=== PATIENT | male | born 1970 | race Caucasian/White ===

== ENCOUNTER 2016-10-01 02:15 | Emergency (ER) | payer OTHER ==
[2016-10-01] MEDS ORDERED: ZIPRASIDONE MESYLATE 20 MG VIAL IM ONE ×2 (02:20)
[2016-10-01] MEDS ORDERED: MIDAZOLAM 2 MG/2 ML VIAL ONE (02:26)
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
[2016-10-01] MEDS ORDERED: MIDAZOLAM 10 MG/2 ML VIAL IM ONE (02:48)
[2016-10-01 02:49] LABS: % IMMATURE GRANULYOCYTES 0.7 % (0.0-1.1); ABSOLUTE IMMATURE GRANULOCYTES 0.15 10^3/uL (0.00-0.10); ADD DIFF? NO; ADD MORPH? NO; ADD SCAN? NO; ATYPICAL LYMPHOCYTE FLAG 0 (0-99); FRAGMENT RBC FLAG 0 (0-99); HEMATOCRIT 43.3 % (40.0-51.0); LEFT SHIFT FLG 0 (0-99); LIPEMIA HEMOLYSIS FLAG 90 (0-99); MEAN CELL HEMOGLOBIN 30.7 pg (27.9-34.1); MEAN CELL HEMOGLOBIN CONCENTR. 34.6 g/dL (32.4-36.7); MEAN CELL VOLUME 88.7 fL (81.5-99.8); PLATELET CLUMPS FLAG 10 (0-99); PLATELET COUNT 414 10^3/uL (150-400); RED BLOOD CELL COUNT 4.88 10^6/uL (4.40-6.38); RED CELL DISTRIBUTION WIDTH 12.5 % (11.5-15.2)
[2016-10-01] MEDS ORDERED: NS 1,000 ML IV ONE ×2 (02:49→03:41)
[2016-10-01 03:01] LABS: ALANINE AMINOTRANSFERASE 38 IU/L (21-72); ALBUMIN 5.1 g/dL (3.5-5.0); ALKALINE PHOSPHATASE 85 IU/L (38-126); ANION GAP 22 mEq/L (8-16); BILIRUBIN,TOTAL 1.2 mg/dL (0.1-1.4); CALCIUM 9.6 mg/dL (8.5-10.4); CARBON DIOXIDE 13 mEq/l (22-31); CHLORIDE 97 mEq/L (97-110); CREATININE 0.9 mg/dL (0.7-1.3); ETHANOL SERUM < 10 mg/dL (0-10); GLOMERULAR FILTRATION RATE > 60; GLUCOSE 114 mg/dL (70-100); POTASSIUM 4.3 mEq/L (3.5-5.2); SODIUM 132 mEq/L (134-144); TOTAL PROTEIN 7.8 g/dL (6.3-8.2)
[2016-10-01 03:06] LABS: LITHIUM < 0.2 mEq/L (0.6-1.2)
[2016-10-01 03:07] LABS: ASPARTATE AMINOTRANSFERASE 77 IU/L (17-59)
[2016-10-01 04:31] LABS: COLOR YELLOW; LEUKOCYTE ESTERASE,URINE NEGATIVE (NEGATIVE); NITRITE,URINE NEGATIVE (NEGATIVE)
[2016-10-01 05:58] LABS: % IMMATURE GRANULYOCYTES 0.5 % (0.0-1.1); ABSOLUTE IMMATURE GRANULOCYTES 0.11 10^3/uL (0.00-0.10); ADD DIFF? NO; ADD MORPH? NO; ADD SCAN? NO; ATYPICAL LYMPHOCYTE FLAG 10 (0-99); FRAGMENT RBC FLAG 0 (0-99); HEMATOCRIT 38.3 % (40.0-51.0); HEMOGLOBIN 13.6 g/dL (13.7-17.5); LEFT SHIFT FLG 10 (0-99); LIPEMIA HEMOLYSIS FLAG 90 (0-99); MEAN CELL HEMOGLOBIN 31.2 pg (27.9-34.1); MEAN CELL HEMOGLOBIN CONCENTR. 35.5 g/dL (32.4-36.7); MEAN CELL VOLUME 87.8 fL (81.5-99.8); PLATELET CLUMPS FLAG 10 (0-99); PLATELET COUNT 335 10^3/uL (150-400); RED BLOOD CELL COUNT 4.36 10^6/uL (4.40-6.38); RED CELL DISTRIBUTION WIDTH 12.5 % (11.5-15.2)
[2016-10-01 06:13] LABS: ANION GAP 7 mEq/L (8-16); CALCIUM 8.6 mg/dL (8.5-10.4); CARBON DIOXIDE 23 mEq/l (22-31); CHLORIDE 107 mEq/L (97-110); CREATININE 0.7 mg/dL (0.7-1.3); GLOMERULAR FILTRATION RATE > 60; GLUCOSE 97 mg/dL (70-100); POTASSIUM 4.1 mEq/L (3.5-5.2); SODIUM 137 mEq/L (134-144)
[2016-10-01 06:44] VITALS: TEMP 98.2
[2016-10-01 07:30] VITALS: PULSE 88
[2016-10-01 11:46] VITALS: BP 161/103; RESP 18; O2SAT 95
== END 2016-10-01 11:47 | disposition home or self-care (01) ==
LOC: EDUNIT#
DX: F31.9 Bipolar disorder, unspecified (principal); F17.200 Nicotine dependence, unspecified, uncomplicated
CPT/HCPCS: 80305; G0480; J2250; J3486

== ENCOUNTER 2016-10-05 10:54 | Inpatient (IN) | payer OTHER ==
[2016-10-05] MEDS ORDERED: LORazepam 1 MG TAB PO ONE (11:29)
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
[2016-10-05 12:53] LABS: % IMMATURE GRANULYOCYTES 0.6 % (0.0-1.1); ABSOLUTE IMMATURE GRANULOCYTES 0.15 10^3/uL (0.00-0.10); ADD DIFF? NO; ADD MORPH? NO; ADD SCAN? NO; ATYPICAL LYMPHOCYTE FLAG 10 (0-99); FRAGMENT RBC FLAG 0 (0-99); HEMATOCRIT 45.3 % (40.0-51.0); LEFT SHIFT FLG 0 (0-99); LIPEMIA HEMOLYSIS FLAG 90 (0-99); MEAN CELL HEMOGLOBIN 31.1 pg (27.9-34.1); MEAN CELL HEMOGLOBIN CONCENTR. 35.3 g/dL (32.4-36.7); MEAN PLATELET VOLUME 8.9 fL (8.7-11.7); PLATELET CLUMPS FLAG 0 (0-99); PLATELET COUNT 430 10^3/uL (150-400); RED BLOOD CELL COUNT 5.15 10^6/uL (4.40-6.38); RED CELL DISTRIBUTION WIDTH 12.4 % (11.5-15.2)
[2016-10-05 13:10] LABS: ANION GAP 13 mEq/L (8-16); CALCIUM 9.7 mg/dL (8.5-10.4); CARBON DIOXIDE 20 mEq/l (22-31); CHLORIDE 99 mEq/L (97-110); CREATININE 0.6 mg/dL (0.7-1.3); ETHANOL SERUM < 10 mg/dL (0-10); GLOMERULAR FILTRATION RATE > 60; GLUCOSE 114 mg/dL (70-100); SALICYLATE < 1.0 mg/dL (2.0-20.0); SODIUM 132 mEq/L (134-144)
[2016-10-05 14:03] LABS: COLOR YELLOW; LEUKOCYTE ESTERASE,URINE NEGATIVE (NEGATIVE); NITRITE,URINE NEGATIVE (NEGATIVE)
[2016-10-05 14:09] LABS: MUCUS 4+ /lpf (NONE-1+)
[2016-10-05 14:37] LABS: LITHIUM < 0.2 mEq/L (0.6-1.2)
[2016-10-05] MEDS ORDERED: NICOTINE POLACRILEX 2 MG GUM B ONE (18:40)
[2016-10-05] MEDS ORDERED: MAG HYDROX/AL HYDROX/SIMETH 30 ML UDCUP PO PRN (20:11)
[2016-10-05] MEDS ORDERED: OLANZapine DISINTEGR 10 MG TAB PO PRN (20:11)
[2016-10-05] MEDS: LITHIUM CARBONATE 300 MG TAB PO SCH (20:42)
[2016-10-05] MEDS: QUEtiapine FUMARATE 300 MG TAB PO SCH (20:55)
[2016-10-05] MEDS: NICOTINE POLACRILEX 2 MG GUM B PRN (22:29)
[2016-10-06] MEDS: LITHIUM CARBONATE 300 MG TAB PO SCH ×3 (09:43→21:30)
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
[2016-10-06] MEDS: NICOTINE 21 MG/24 HR PATCH TD SCH (14:55)
[2016-10-06] MEDS: NICOTINE POLACRILEX 2 MG GUM B PRN (21:10)
[2016-10-06] MEDS: QUEtiapine FUMARATE 300 MG TAB PO SCH (21:30)
[2016-10-06] MEDS ORDERED: OLANZapine DISINTEGR 5 MG TAB PO PRN (23:42)
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
[2016-10-07] MEDS: NICOTINE POLACRILEX 2 MG GUM B PRN ×2 (04:22→18:49)
[2016-10-07] MEDS: LITHIUM CARBONATE 300 MG TAB PO SCH ×2 (07:51→21:24)
[2016-10-07] MEDS: NICOTINE 21 MG/24 HR PATCH TD SCH (07:52)
--- NOTE | 2016-10-07 12:38 | SOAPPROG ---
SOAP Progress Note Assessment/Plan: Assessment: 46yo CM admitted on M1 for psychosis after 2nd presentation to [facility] ED within 1 week. Has hx of BMD with psychosis, also THC use and more remote EtOH/meth use. Became psychotic/paranoid at [facility] on 10/01/16 with seizure-like activity, medicated with IM Geodon. Cleared and d/cd. Re-presented with increased psychosis and dangerous behaviors 10/05/16 and admitted to 3N. Has been noncompliant with psych treatment and recommended medical w/u incl labs and VS for his elevated WBC 23K, which was also noted 10/01. 10/07/16 10:30 Did not sleep at all last pm. This AM had acute episode of N/V, stated he did not feel right, did not feel well. +lightheaded, blurry vision. no cervical pain or headache. +mid-sternal/left-sided chest pain with some radiation to LUE and reports mildly feeling SOB. Adds that he has had "a little cough". Reports +FHx of CAD. Feels anxious around people, and admits feeling so now, but compliant with plan to transfer to ED for evaluation. Did allow VS this AM following expression of medical concerns. Did not allow labs this AM on 3N. PLAN: Discussed case with ED attending Dr. Link, will discharge pt to ED for evaluation. Continue on M1 hold. [facility] notified. Objective: Vital Signs Temp Pulse Resp BP Pulse Ox 36.8 C 87 12 169/96 H 97 10/07/16 10:25 10/07/16 10:25 10/07/16 10:25 10/07/16 10:25 10/07/16 10:25 - Time Spent With Patient Time Spent With Patient: 35min - Pending Discharge Pending Discharge Within 24 Hours: No Pending Discharge Within 48 Hours: No ICD10 Worksheet Patient Problems: Problems Problem Status Onset Acute psychosis Acute Leukocytosis Acute Thrombocythemia Acute
[2016-10-07] MEDS: NEOMYCIN/POLYMYX B/HC SUSP 10 ML OTIC.BTL LEFTEAR SCH ×2 (17:33→20:25)
[2016-10-07] MEDS: QUEtiapine FUMARATE 300 MG TAB PO SCH ×2 (21:24→21:52)
[2016-10-08] MEDS: NEOMYCIN/POLYMYX B/HC SUSP 10 ML OTIC.BTL LEFTEAR SCH ×5 (06:20→21:32)
[2016-10-08] MEDS: AZITHROMYCIN 250 MG TAB PO SCH ×2 (08:34→13:44)
[2016-10-08] MEDS: LORazepam 0.5 MG TAB PO PRN (08:42)
[2016-10-08] MEDS: NICOTINE 21 MG/24 HR PATCH TD SCH (09:16)
[2016-10-08] MEDS: LITHIUM CARBONATE 300 MG TAB PO SCH ×2 (09:17→21:32)
--- NOTE | 2016-10-08 10:05 | SOAPPROG ---
SOAP Progress Note Assessment/Plan: Assessment: 46yo CM admitted on M1 for psychosis after 2nd presentation to [facility] ED within 1 week. Has hx of BMD with psychosis, also THC use and more remote EtOH/meth use. Became psychotic/paranoid at [facility] on 10/01/16 with seizure-like activity, medicated with IM Geodon. Cleared and d/cd. Re-presented with increased psychosis and dangerous behaviors 10/05/16 and admitted to 3N. Has been noncompliant with psych treatment and recommended medical w/u incl labs and VS for his elevated WBC 23K, which was also noted 10/01. 10/07/16 10:30 Did not sleep at all last pm. This AM had acute episode of N/V, stated he did not feel right, did not feel well. +lightheaded, blurry vision. no cervical pain or headache. +mid-sternal/left-sided chest pain with some radiation to LUE and reports mildly feeling SOB. Adds that he has had "a little cough". Reports +FHx of CAD. Feels anxious around people, and admits feeling so now, but compliant with plan to transfer to ED for evaluation. Did allow VS this AM following expression of medical concerns. Did not allow labs this AM on 3N. PLAN: Discussed case with ED attending Dr. Link, will discharge pt to ED for evaluation. Continue on M1 hold. TLC notified. 10/07/16 15:46 pt returned from ED after about 4-5 hrs, t/w Dr. Link. negative w/u for any acute medical issues except bronchitis noted on CXray and started on ABXs. no acute EKG changes, neg troponins, WBC 9K. Pt returned to unit, still not feeling he needs to be on inpatient psychiatry unit, [facility]. Expressed paranoid ideation about his lab work, insisting "no way my white count can just drop like that", and then talked of conspiracies within the hospital despite attempt to explain that w/u was neg and nml WBC is good. "I still don't feel good, I don't need to be here". Unable to elaborate further. MSE: disheveled, casually dressed, good eye contact, nml psychom activity, nml rate/vol speech but with hostile tone, mood "I'm fine", affect irritable/angry, denied any SI or HI, and denied any AH/VH "but I wouldn't tell you anyway, I think we're done talking". i/j -poor. A&Ox3. Explained that M1 would in AM and he was not felt to be stable for d/c, certainly not to travel back to [place] unmedicated and risk worsening psychosis. Mentioned that dtr also concerned about pt. He then cursed and said he didn't care about her, although she has been a primary support for him and he has been supportive of her. Pt's dtr reported earlier that pt prob wouldn't take meds unless injectable. Explained options on M1, including vol stay, STC or d/c. pt requested d/c, refuses to stay vol. Informed of initiation of STC for continued mental health tx to ensure stabilization and safety, right to an atty "I can get my own", and 3rd libertarian notification. Informed of right to refuse offered meds, unless imminent risk of danger to self/others. Security stood by during pt being informed of STC. Pt then left to his room mumbling angrily. PLAN: STC placed. cont safety precautions, cont to offer meds as Rxd. hx of Cyril May. t/ [facility] in [place], [place] for further collateral this week pt wants to return to [place] or be transferred to [facility] cont ABXs for total 5 d as per ED recs for bronchitis. Objective: Vital Signs Temp Pulse Resp BP Pulse Ox 36.8 C 87 12 169/96 H 97 10/07/16 10:25 10/07/16 10:25 10/07/16 10:25 10/07/16 10:25 10/07/16 10:25 - Time Spent With Patient Time Spent With Patient: 35min total today - Pending Discharge Pending Discharge Within 24 Hours: No Pending Discharge Within 48 Hours: No ICD10 Worksheet Patient Problems: Problems Problem Status Onset Acute psychosis Acute Leukocytosis Acute Thrombocythemia Acute
--- NOTE | 2016-10-08 11:44 | SOAPPROG ---
LUIS Progress Note Assessment/Plan: Assessment: Plan: 10/08/16 11:44 Medications Generic Name Dose Route Start Last Admin Trade Name Freq PRN Reason Stop Dose Admin Lorazepam 0.5 - 1 mg 10/05/16 20:11 Ativan PO 04/03/17 20:10 Q6HRS PRN Anxiety, Able to Take PO Quetiapine Fumarate 150 mg 10/06/16 23:52 10/07/16 21:52 Seroquel PO 04/03/17 20:59 150 mg HS BUCKY [place] Carbonate 300 mg 10/05/16 21:00 10/08/16 09:17 [place] Carbonate PO 04/03/17 20:59 300 mg BID BUCKY Olanzapine 5 mg 10/06/16 23:42 Zyprexa Zydis PO 04/03/17 20:10 TID PRN Agitation, Psychosis Objective: Vital Signs Temp Pulse Resp BP Pulse Ox 36.8 C 87 12 169/96 H 97 10/07/16 10:25 10/07/16 10:25 10/07/16 10:25 10/07/16 10:25 10/07/16 10:25 ICD10 Worksheet Patient Problems: Problems Problem Status Onset Acute psychosis Acute Leukocytosis Acute Thrombocythemia Acute
[2016-10-08] MEDS ORDERED: AZITHROMYCIN 250 MG TAB PO ONE (12:00)
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
[2016-10-08] MEDS: QUEtiapine FUMARATE 300 MG TAB PO SCH (21:32)
[2016-10-08] MEDS: AMOXICILLIN/CLAVULANATE POT 875/125 MG TAB PO SCH (21:32)
[2016-10-09] MEDS: NICOTINE POLACRILEX 2 MG GUM B PRN (00:13)
[2016-10-09] MEDS: NEOMYCIN/POLYMYX B/HC SUSP 10 ML OTIC.BTL LEFTEAR SCH ×6 (06:01→23:19)
[2016-10-09] MEDS: NICOTINE 21 MG/24 HR PATCH TD SCH (08:50)
[2016-10-09] MEDS: AMOXICILLIN/CLAVULANATE POT 875/125 MG TAB PO SCH ×2 (08:50→21:08)
[2016-10-09] MEDS: LITHIUM CARBONATE 300 MG TAB PO SCH ×2 (08:50→21:08)
[2016-10-09] MEDS: ARIPiprazole 2 MG TAB PO SCH ×2 (11:10→21:08)
--- NOTE | 2016-10-09 15:34 | SOAPPROG ---
SOAP Progress Note Assessment/Plan: Assessment: * L otitis externa. Improving. Continue Augmentin total of 7 days and Cortisporin until symptoms/signs resolve. * Bronchitis, resolving. Will continue to follow. 10/09/16 15:35 Subjective: Follow-up on otitis externa and bronchitis. L ear still feels clogged. Has cough with occ yellow sputum. No dyspnea, no ear pain, no F/C. Objective: Vital Signs Temp Pulse Resp BP Pulse Ox 36.8 C 87 12 169/96 H 97 10/07/16 10:25 10/07/16 10:25 10/07/16 10:25 10/07/16 10:25 10/07/16 10:25 Physical Exam - Physical Exam General Appearance: WD/WN, alert, no apparent distress EENT: other (L EACH with white purulent exudate approx mid-EAC. Able to visualize superior aspect of TM, which is pearly vides +/- bulging. No EAC or TM erythema noted. Hearing intact to finger-rub on R, absent on L.) Respiratory: normal breath sounds, No crackles, No rhonchi, No wheezing ICD10 Worksheet Patient Problems: Problems Problem Status Onset Acute psychosis Acute Leukocytosis Acute Thrombocythemia Acute Bronchitis Acute Otitis externa Acute
[2016-10-09] MEDS: DOXEPIN HCL 25 MG CAP PO SCH (22:51)
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
[2016-10-10] MEDS: NEOMYCIN/POLYMYX B/HC SUSP 10 ML OTIC.BTL LEFTEAR SCH ×3 (07:25→16:04)
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
[2016-10-10] MEDS: AMOXICILLIN/CLAVULANATE POT 875/125 MG TAB PO SCH ×2 (09:08→21:57)
[2016-10-10] MEDS: NICOTINE 21 MG/24 HR PATCH TD SCH (09:09)
[2016-10-10] MEDS: LITHIUM CARBONATE 300 MG TAB PO SCH ×2 (09:09→21:57)
[2016-10-10] MEDS: ARIPiprazole 5 MG TAB PO SCH ×2 (09:20→21:57)
[2016-10-10] MEDS ORDERED: PSYLLIUM METAMUCIL 1 PKT PO ONE ×2 (09:25→09:34)
[2016-10-10] MEDS ORDERED: DOCUSATE SODIUM 100 MG CAP PO ONE (09:33)
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
[2016-10-10] MEDS: DOCUSATE SODIUM 100 MG CAP PO SCH ×2 (10:23→21:57)
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
[2016-10-10] MEDS: MAGNESIUM HYDROXIDE 30 ML UDCUP PO PRN ×2 (15:02→22:55)
--- NOTE | 2016-10-10 18:21 | SOAPPROG ---
SOAP Progress Note Assessment/Plan: Assessment: * L otitis externa. Continues to improve. Continue Augmentin one more day until reassessed tomorrow 10/11/16. D/C Cortisporin as TM appears perforated. If TM continues to appear abnormal, he should be referred to ENT after discharge. * Bronchitis, resolved. Hospitalist to see 10/11/16. 10/10/16 18:19 Subjective: Follow-up on bronchitis and otitis externa. He says his ear feels unclogged and he can hear. No pain, dyspnea, cough, f/c. Objective: Vital Signs Temp Pulse Resp BP Pulse Ox 36.9 C 92 16 108/64 98 10/10/16 07:36 10/10/16 08:36 10/10/16 08:36 10/10/16 08:36 10/10/16 08:36 Physical Exam - Physical Exam General Appearance: WD/WN, alert, no apparent distress EENT: other (: EAC with erythema. Purulence resolved. TM appears perforated. Hearing reduced but present to finger-rub on L, normal on R.) Respiratory: normal breath sounds, No crackles, No rhonchi, No wheezing ICD10 Worksheet Patient Problems: Problems Problem Status Onset Acute psychosis Acute Leukocytosis Acute Thrombocythemia Acute Bronchitis Acute
[2016-10-10] MEDS: DOXEPIN HCL 25 MG CAP PO SCH (21:56)
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
[2016-10-11] MEDS: NICOTINE 21 MG/24 HR PATCH TD SCH (08:12)
[2016-10-11] MEDS: AMOXICILLIN/CLAVULANATE POT 875/125 MG TAB PO SCH ×2 (08:12→21:11)
[2016-10-11] MEDS: DOCUSATE SODIUM 100 MG CAP PO SCH ×2 (08:14→21:11)
[2016-10-11] MEDS: ARIPiprazole 5 MG TAB PO SCH ×2 (08:14→21:11)
[2016-10-11] MEDS: LITHIUM CARBONATE 300 MG TAB PO SCH ×2 (08:14→21:11)
[2016-10-11] MEDS: LORazepam 0.5 MG TAB PO PRN (08:19)
[2016-10-11] MEDS: ACETAMINOPHEN 325 MG TAB PO PRN (08:22)
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
[2016-10-11] MEDS: MAGNESIUM HYDROXIDE 30 ML UDCUP PO PRN (14:28)
[2016-10-11 15:25] LABS: COLOR PALE YELLOW; LEUKOCYTE ESTERASE,URINE NEGATIVE (NEGATIVE); NITRITE,URINE NEGATIVE (NEGATIVE)
[2016-10-11] MEDS ORDERED: DOXEPIN HCL 50 MG CAP PO SCH (21:00)
[2016-10-12] MEDS: MAGNESIUM HYDROXIDE 30 ML UDCUP PO PRN (06:01)
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
[2016-10-12] MEDS: LITHIUM CARBONATE 300 MG TAB PO SCH ×2 (07:36→20:56)
[2016-10-12] MEDS: ACETAMINOPHEN 325 MG TAB PO PRN ×2 (07:36→15:21)
[2016-10-12] MEDS: ARIPiprazole 5 MG TAB PO SCH (07:36)
[2016-10-12] MEDS: AMOXICILLIN/CLAVULANATE POT 875/125 MG TAB PO SCH ×2 (07:36→20:56)
[2016-10-12] MEDS: DOCUSATE SODIUM 100 MG CAP PO SCH ×2 (07:36→20:56)
[2016-10-12] MEDS: NICOTINE 21 MG/24 HR PATCH TD SCH (07:37)
[2016-10-12] MEDS: NICOTINE POLACRILEX 2 MG GUM B PRN ×2 (08:59→21:36)
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
[2016-10-12] MEDS ORDERED: ARIPiprazole 5 MG TAB PO SCH (10:45)
[2016-10-12 12:27] VITALS: TEMP 97.6
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
--- NOTE | 2016-10-12 14:40 | SOAPPROG ---
SOAP Progress Note Assessment/Plan: Assessment: * L otitis externa. Continues to improve. Continue Augmentin full course through10/14/16. Restart cortisporin as exam today 10/12/16 is not c/w perforation. * Bronchitis, resolved. 10/12/16 14:38 Subjective: L ear feels better. Hearing is improved. Has continuing discmfort with swallowing and post-nasal drainage Objective: Vital Signs Temp Pulse Resp BP Pulse Ox 36.4 C 89 16 134/89 H 97 10/12/16 12:27 10/12/16 12:27 10/10/16 08:36 10/12/16 12:27 10/12/16 12:27 Physical Exam - Physical Exam General Appearance: WD/WN, alert, no apparent distress EENT: pharynx normal (Malampati class III; could not visualize posterior OP.), other (L EAC with erythema and necrotic debris. Superior/posterior aspect on TM visible, pearly vides, otherwise obscured by necrotic debris.) Neck: supple Respiratory: No respiratory distress, No accessory muscle use ICD10 Worksheet Patient Problems: Problems Problem Status Onset Acute psychosis Acute Leukocytosis Acute Thrombocythemia Acute Bronchitis Acute
[2016-10-12] MEDS: LORazepam 0.5 MG TAB PO PRN ×2 (15:20→21:33)
[2016-10-12] MEDS: NEOMY SULF/POLYMYX B SULF/HC 10ML OTIC SOLUTION LEFTEAR SCH ×2 (15:21→20:55)
[2016-10-12] MEDS: DOXEPIN HCL 25 MG CAP PO SCH (20:56)
[2016-10-12] MEDS: ARIPiprazole 10 MG TAB PO SCH (20:56)
[2016-10-13] MEDS: LORazepam 0.5 MG TAB PO PRN ×2 (03:43→22:12)
[2016-10-13] MEDS: NEOMY SULF/POLYMYX B SULF/HC 10ML OTIC SOLUTION LEFTEAR SCH ×5 (07:48→21:04)
[2016-10-13] MEDS: AMOXICILLIN/CLAVULANATE POT 875/125 MG TAB PO SCH ×2 (08:54→21:05)
[2016-10-13] MEDS: DOCUSATE SODIUM 100 MG CAP PO SCH ×2 (08:55→21:05)
[2016-10-13] MEDS: NICOTINE 21 MG/24 HR PATCH TD SCH (08:55)
[2016-10-13] MEDS: ARIPiprazole 5 MG TAB PO SCH (08:55)
[2016-10-13] MEDS: LITHIUM CARBONATE 300 MG TAB PO SCH ×2 (08:55→21:05)
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
[2016-10-13] MEDS: MAGNESIUM HYDROXIDE 30 ML UDCUP PO PRN (16:18)
[2016-10-13] MEDS: DOXEPIN HCL 25 MG CAP PO SCH (21:05)
[2016-10-13] MEDS: ARIPiprazole 10 MG TAB PO SCH (21:05)
[2016-10-14] MEDS: LORazepam 0.5 MG TAB PO PRN ×3 (03:47→21:35)
[2016-10-14] MEDS: NEOMY SULF/POLYMYX B SULF/HC 10ML OTIC SOLUTION LEFTEAR SCH ×2 (05:59→11:30)
[2016-10-14] MEDS: NICOTINE 21 MG/24 HR PATCH TD SCH (06:23)
[2016-10-14] MEDS: NICOTINE POLACRILEX 2 MG GUM B PRN (06:24)
[2016-10-14] MEDS: LITHIUM CARBONATE 300 MG TAB PO SCH ×2 (08:26→19:27)
[2016-10-14] MEDS: AMOXICILLIN/CLAVULANATE POT 875/125 MG TAB PO SCH (08:26)
[2016-10-14] MEDS: DOCUSATE SODIUM 100 MG CAP PO SCH ×2 (08:27→19:27)
[2016-10-14] MEDS: ARIPiprazole 5 MG TAB PO SCH (08:27)
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
[2016-10-14] MEDS: POLYETHYLENE GLYCOL 3350 17 GM PKT PO SCH (12:36)
[2016-10-14] MEDS: MAGNESIUM HYDROXIDE 30 ML UDCUP PO PRN (12:39)
[2016-10-14] MEDS: ARIPiprazole 10 MG TAB PO SCH (19:27)
[2016-10-14] MEDS: DOXEPIN HCL 25 MG CAP PO SCH (19:28)
[2016-10-15] MEDS ORDERED: ARIPiprazole 5 MG TAB PO SCH
[2016-10-15] MEDS ORDERED: DOXEPIN HCL 25 MG CAP PO SCH
[2016-10-15] MEDS ORDERED: LITHIUM CARBONATE 300 MG TAB PO SCH
[2016-10-15] MEDS ORDERED: LITHIUM CARBONATE 300 MG CAP PO SCH
[2016-10-15 00:39] VITALS: BP 132/82; PULSE 88; RESP 15; O2SAT 95
[2016-10-15] MEDS: LORazepam 0.5 MG TAB PO PRN (04:59)
[2016-10-15] MEDS: ARIPiprazole 5 MG TAB PO SCH (07:49)
[2016-10-15] MEDS: DOCUSATE SODIUM 100 MG CAP PO SCH (07:49)
[2016-10-15] MEDS: LITHIUM CARBONATE 300 MG TAB PO SCH (07:49)
[2016-10-15] MEDS: POLYETHYLENE GLYCOL 3350 17 GM PKT PO SCH (07:50)
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
[2016-10-15] MEDS ORDERED: NICOTINE 21 MG/24 HR PATCH TD ONE (10:54)
[2016-10-15] MEDS: NICOTINE 21 MG/24 HR PATCH TD SCH (10:56)
[2016-10-15] MEDS ORDERED: NICOTINE POLACRILEX 2 MG GUM B ONE (11:00)
== END 2016-10-15 17:27 | disposition home or self-care (01) | DRG 885 ==
LOC: EDUNIT# → BBEH 17:25
PROVIDERS: ADMIT Psychiatry & Neurology Psychiatry; ATTEND Psychiatry & Neurology Psychiatry
DX: F31.2 Bipolar disorder, current episode manic severe with psychotic features (principal); F12.259 Cannabis dependence with psychotic disorder, unspecified; F17.210 Nicotine dependence, cigarettes, uncomplicated; F15.21 Other stimulant dependence, in remission; F10.21 Alcohol dependence, in remission; D47.3 Essential (hemorrhagic) thrombocythemia; M46.96 Unspecified inflammatory spondylopathy, lumbar region; D72.829 Elevated white blood cell count, unspecified; S00.412A Abrasion of left ear, initial encounter; X58.XXXA Exposure to other specified factors, initial encounter; Z91.14 Patient's other noncompliance with medication regimen; Z87.2 Personal history of diseases of the skin and subcutaneous tissue
CPT/HCPCS: 80305; G0480

== ENCOUNTER 2016-10-07 11:03 | Emergency (ER) | payer OTHER ==
[2016-10-07 11:19] VITALS: RESP 14
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
[2016-10-07] MEDS ORDERED: NS 1,000 ML IV ONE (11:59)
[2016-10-07 12:06] LABS: COLOR COLORLESS; LEUKOCYTE ESTERASE,URINE NEGATIVE (NEGATIVE); NITRITE,URINE NEGATIVE (NEGATIVE)
[2016-10-07 12:09] LABS: WBC,URINE NONE SEEN /hpf (0-3)
--- NOTE | 2016-10-07 12:13 | CPEKG ---
Heart Rate: 66 RR Interval: 909 P-R Interval: 108 QRSD Interval: 86 QT Interval: 412 QTC Interval: 432 P [place]: -9 QRS [place]: 34 T Wave [place]: 17 EKG Severity - BORDERLINE ECG - EKG Impression: SINUS RHYTHM EKG Impression: SHORT MD INTERVAL, ACCELERATED AV CONDUCTION Electronically Signed By: Chelly Link 07-Oct-2016 14:55:48
[2016-10-07 12:23] LABS: % IMMATURE GRANULYOCYTES 0.4 % (0.0-1.1); ABSOLUTE IMMATURE GRANULOCYTES 0.04 10^3/uL (0.00-0.10); ADD DIFF? NO; ADD MORPH? NO; ADD SCAN? NO; ATYPICAL LYMPHOCYTE FLAG 10 (0-99); FRAGMENT RBC FLAG 0 (0-99); HEMATOCRIT 42.7 % (40.0-51.0); HEMOGLOBIN 15.1 g/dL (13.7-17.5); LEFT SHIFT FLG 0 (0-99); LIPEMIA HEMOLYSIS FLAG 90 (0-99); MEAN CELL HEMOGLOBIN CONCENTR. 35.4 g/dL (32.4-36.7); MEAN CELL VOLUME 87.7 fL (81.5-99.8); MEAN PLATELET VOLUME 8.8 fL (8.7-11.7); PLATELET CLUMPS FLAG 0 (0-99); PLATELET COUNT 417 10^3/uL (150-400); RED BLOOD CELL COUNT 4.87 10^6/uL (4.40-6.38); RED CELL DISTRIBUTION WIDTH 12.4 % (11.5-15.2)
[2016-10-07 12:37] LABS: ALANINE AMINOTRANSFERASE 47 IU/L (21-72); ALBUMIN 4.5 g/dL (3.5-5.0); ALKALINE PHOSPHATASE 82 IU/L (38-126); ANION GAP 11 mEq/L (8-16); ASPARTATE AMINOTRANSFERASE 25 IU/L (17-59); BILIRUBIN,TOTAL 0.7 mg/dL (0.1-1.4); BILIRUBIN-CONJUGATED 0.4 mg/dL (0.0-0.5); BILIRUBIN-UNCONJUGATED 0.3 mg/dL (0.0-1.1); CALCIUM 9.5 mg/dL (8.5-10.4); CARBON DIOXIDE 24 mEq/l (22-31); CHLORIDE 103 mEq/L (97-110); CREATININE 0.6 mg/dL (0.7-1.3); GLOMERULAR FILTRATION RATE > 60; GLUCOSE 107 mg/dL (70-100); POTASSIUM 4.1 mEq/L (3.5-5.2); SODIUM 138 mEq/L (134-144); TOTAL PROTEIN 6.9 g/dL (6.3-8.2)
[2016-10-07 12:48] LABS: TROPONIN I < 0.012 ng/mL (0-0.034)
[2016-10-07] MEDS ORDERED: AZITHROMYCIN 250 MG TAB PO ONE (13:57)
[2016-10-07] MEDS ORDERED: NEOMYCIN/POLYMYX B/HC SUSP 10 ML OTIC.BTL LEFTEAR ONE (14:39)
[2016-10-07 15:04] VITALS: BP 128/78; PULSE 70; TEMP 98.4; O2SAT 94
== END 2016-10-07 15:03 ==
LOC: EDUNIT#
DX: J40 Bronchitis, not specified as acute or chronic (principal); H60.502 Unspecified acute noninfective otitis externa, left ear